=== PATIENT | female | born 1985 | race Caucasian/White ===

== ENCOUNTER 2016-06-20 20:25 | Emergency (ER) | payer OTHER ==
[~2016-06-20 20:25] MED LIST: AMOX500C PO; CLIN-44 PO; HYDR-971 PO; SULF1TAB24 PO
[2016-06-20 21:05] VITALS: BP 149/82
[2016-06-20] MEDS ORDERED: HYDROCODONE/APAP 5/325MG TABLET. PO ONE (22:30)
[2016-06-20] MEDS ORDERED: AMOX875T PO (22:36)
[2016-06-20] MEDS ORDERED: HYDR-971 PO (22:36)
--- NOTE | 2016-06-20 22:37 | PHYS DOC ---
Past Medical History Past Medical History: No Pertinent History Past Surgical History: Tubal ligation Alcohol Use: None Drug Use: None Adult General Chief Complaint Chief Complaint: DENTAL PROBLEM HPI HPI Patient is a 30 year old female who presents with moderate right lower gum dental pain that began a couple days ago. Patient states she follows up [facility]. Patient denies any fever or trismus. Review of Systems Review of Systems Constitutional: Denies fever or chills [] Eyes: Denies change in visual acuity, redness, or eye pain [] HENT: Dental pain Integument: Denies rash or skin lesions [] Neurologic: Denies headache, focal weakness or sensory changes [] Endocrine: Denies polyuria or polydipsia [] Current Medications Current Medications Current Medications Medications (Trade) Dose Ordered Sig/Desmond Start Time Stop Time Status Last Admin Dose Admin Acetaminophen/ Hydrocodone Bitart (Lortab 5/325) 1 tab 1X ONCE 06/20/16 22:30 06/20/16 22:31 DC 06/20/16 22:24 1 TAB Allergies Allergies Allergies Coded Allergies Type Severity Reaction Last Updated Verified sulfamethoxazole Allergy Unknown 01/05/16 Yes trimethoprim Allergy Unknown 01/05/16 Yes Physical Exam Physical Exam Constitutional: Well developed, well nourished, no acute distress, non-toxic appearance. [] HENT: Normocephalic, atraumatic, bilateral external ears normal, oropharynx moist, no oral exudates, nose normal. [] Tooth #30 is decayed and broken. Dental caries noted in other teeth. No gum redness. No gum swelling. Skin: Warm, dry, no erythema, no rash. [] Back: No tenderness, no CVA tenderness. [] Extremities: No tenderness, no cyanosis, no clubbing, ROM intact, no edema. [] Neurologic: Alert and oriented X 3, normal motor function, normal sensory function, no focal deficits noted. [] Psychologic: Affect normal, judgement normal, mood normal. [] Current Patient Data Vital Signs Vital Signs Date Time Temp Pulse Resp B/P Pulse Ox O2 Delivery O2 Flow Rate FiO2 06/20/16 22:24 16 Room Air 06/20/16 21:05 97.9 76 100 97.9 EKG EKG [] Radiology/Procedures Radiology/Procedures [] Course & Med Decision Making Course & Med Decision Making Pertinent Labs and Imaging studies reviewed. (See chart for details) Patient is in the ED with infected dental caries. She is to follow-up with her own dentist at [facility] next week. Discharged with amoxicillin and pain medicine. Felicia Disclaimer Felicia Disclaimer This electronic medical record was generated, in whole or in part, using a voice recognition dictation system. Departure Departure Impression: Primary Impression: Infected dental caries Additional Impression: Dentalgia Disposition: 01 HOME, SELF-CARE Condition: STABLE Referrals: NO PCP (PCP) Follow-up with your dentist next week Patient Instructions: Dental Caries, Dental Pain, [id number] Additional Instructions: You were seen for dental pain with infection. Please complete your antibiotics. Follow-up with your dentist next week. Scripts Hydrocodone/Apap 5-325 ([place] 5-325 Tablet)1 Each Tablet1-2 Tab PO Q4-6HRS #14 TAB Prov:KIKO DE LOS SANTOS APRN 06/20/16 Amoxicillin 875 Mg Tablet1 Tab PO BID #20 TAB Prov:KIKO DE LOS SANTOS APRN 06/20/16 Problem Qualifiers KIKO DE LOS SANTOS APRN Jun 20, 2016 22:37
== END 2016-06-20 22:46 | disposition home or self-care (01) ==
LOC: ER 20:25
DX: K04.7 Periapical abscess without sinus (principal); K02.9 Dental caries, unspecified; Z88.2 Allergy status to sulfonamides; Z88.1 Allergy status to other antibiotic agents
CPT/HCPCS: 99283

== ENCOUNTER 2016-12-01 00:19 | Emergency (ER) | payer OTHER ==
[~2016-12-01] VITALS: Ht 160 cm; Wt 54.4 kg
[~2016-12-01 00:19] MED LIST changes: +AMOX875T PO; -CLIN-44 PO; +CLIN150C14 PO
[2016-12-01] MEDS ORDERED: CLIN150C14 PO (00:32)
[2016-12-01] MEDS ORDERED: TRAM-48 PO (00:32)
--- NOTE | 2016-12-01 00:32 | PHYS DOC ---
Past Medical History Past Medical History: No Pertinent History Past Surgical History: Tubal ligation Alcohol Use: None Drug Use: None Adult General Chief Complaint Chief Complaint: INSECT BITE HPI HPI Patient is a 31 year old female who presents with an abscess on the left axilla that she noted 3 days ago. Patient believes it's a spider bite. Patient denies any fever. Review of Systems Review of Systems Constitutional: Denies fever or chills [] GI: Denies abdominal pain, nausea, vomiting, bloody stools or diarrhea [] Musculoskeletal: Denies back pain or joint pain [] Integument: abscess on the left axilla Neurologic: Denies headache, focal weakness or sensory changes [] Current Medications Current Medications Current Medications Medications (Trade) Dose Ordered Sig/Desmond Start Time Stop Time Status Last Admin Dose Admin Acetaminophen/ Hydrocodone Bitart (Lortab 5/325) 1 tab 1X ONCE 12/01/16 01:00 12/01/16 01:01 12/01/16 00:37 1 TAB Lidocaine/Sodium Bicarbonate (Buffered Lidocaine 1%) 20 ml 1X ONCE 12/01/16 01:00 12/01/16 01:01 12/01/16 00:37 20 ML Allergies Allergies Allergies Coded Allergies Type Severity Reaction Last Updated Verified sulfamethoxazole Allergy Unknown 01/05/16 Yes trimethoprim Allergy Unknown 01/05/16 Yes Physical Exam Physical Exam Constitutional: Well developed, well nourished, no acute distress, non-toxic appearance. [] Skin: Warm, dry, left axilla with a moderately indurated area approximately 5 x 5 cm with cellulitis. The area is warm tender to touch and fluctuant. Back: No tenderness, no CVA tenderness. [] Extremities: No tenderness, no cyanosis, no clubbing, ROM intact, no edema. [] Neurologic: Alert and oriented X 3, normal motor function, normal sensory function, no focal deficits noted. [] Psychologic: Affect normal, judgement normal, mood normal. [] Current Patient Data Vital Signs Vital Signs Date Time Temp Pulse Resp B/P (MAP) Pulse Ox O2 Delivery O2 Flow Rate FiO2 12/01/16 00:24 98.7 113 20 149/83 (105) 98 Room Air 98.7 EKG EKG [] Radiology/Procedures Radiology/Procedures Indication: abscess of the left axilla Procedure: The patient was positioned appropriately. Local anesthesia was 1% buffered lidocaine. An incision was then made with size11 blade over the apex of the lesion and moderate amount of bloody yellow material was expressed. The drainage cavity was irrigated and packed with sterile gauze. The patients tetanus status updated as needed. The patient tolerated the procedure poorly, she kicked alot including kicking me Complications: none.[] Course & Med Decision Making Course & Med Decision Making Pertinent Labs and Imaging studies reviewed. (See chart for details) Patient has an abscess of the left axilla that was drained and packed by me as noted in procedures. She was provided instructions to return to the ED in 2 days for wound check. Discharged on clindamycin. Provided return precautions and discharged in stable condition. Tetanus is up-to-date. Dragon Disclaimer Dragon Disclaimer This electronic medical record was generated, in whole or in part, using a voice recognition dictation system. Departure Departure Impression: Primary Impression: Abscess of left axilla Disposition: HOME, SELF-CARE Condition: STABLE Referrals: NO PCP (PCP) Follow-up with the emergency room in 2 days for wound check Patient Instructions: Abscess, Care After Additional Instructions: You were seen with an abscess of the left axilla that was drained and packed. Please take antibiotics as prescribed. Come back to the ED in 2 days for wound check. Scripts Hydrocodone/Apap 5-325 (NORCO 5-325 TABLET) 1 Each Tablet 1-2 TAB PO Q4-6HRS, #20 TAB Prov: KIKO DE LOS SANTOS APRN 12/01/16 Tramadol Hcl (ULTRAM) 50 Mg Tablet 1 TAB PO Q6HRS, #30 TAB Prov: KIKO DE LOS SANTOS APRN 12/01/16 Clindamycin Hcl (CLINDAMYCIN HCL) 150 Mg Capsule 3 CAP PO TID, #90 CAP Prov: KIKO DE LOS SANTOS APRN 12/01/16 KIKO DE LOS SANTOS APRN Dec 01, 2016 00:32
[2016-12-01] MEDS ORDERED: HYDR-971 PO (00:53)
[2016-12-01] MEDS ORDERED: LIDOCAINE 1% / SOD BICARB 8.4% 20 ML VIAL. IJ ONE (01:00)
[2016-12-01] MEDS ORDERED: HYDROcodone/APAP 5/325MG 1 TAB TABLET PO ONE (01:00)
== END 2016-12-01 01:06 | disposition home or self-care (01) ==
LOC: ER 00:19
DX: L02.412 Cutaneous abscess of left axilla (principal); Z88.8 Allergy status to other drugs, medicaments and biological substances; Z88.2 Allergy status to sulfonamides
CPT/HCPCS: 10060; 99283-25

== ENCOUNTER 2017-07-07 21:35 | Emergency (ER) | payer OTHER | END 2017-07-07 23:39 | disposition home or self-care (01) | LOC: ER 21:35 | DX: T74.21XA Adult sexual abuse, confirmed, initial encounter (principal); Z98.51 Tubal ligation status; Z88.2 Allergy status to sulfonamides; Z88.1 Allergy status to other antibiotic agents | CPT/HCPCS: 99281 ==